=== PATIENT | male | born 1960 | race Caucasian/White ===

== ENCOUNTER 2023-05-14 13:56 | Inpatient (IN) | payer SELFPAY ==
[~2023-05-14] VITALS: Ht 177.8 cm; Wt 99.0 kg
[2023-05-14 15:03] LABS: BILIRUBIN,URINE SMALL (Neg); CLARITY,URINE CLOUDY (Clear); COLOR,URINE YELLOW (Yellow); GLUCOSE, URINE NEGATIVE (Neg); KETONES,URINE TRACE mg/dl (Neg); LEUKOCYTE ESTERASE ,URINE LARGE (Neg); NITRITES, URINE NEGATIVE (Neg); OCCULT BLOOD,URINE SMALL (Neg); PH,URINE 8.5 (4.8-8.0); PROTEIN,URINE 30 mg/dl (Neg)
[2023-05-14 15:04] LABS: BASOPHILS % (AUTO) 0.1 % (0-1); EOSINOPHILS % (AUTO) 0.1 % (0-6); HEMATOCRIT 44.2 % (42.0-52.0); HEMOGLOBIN 14.7 g/dl (14.0-17.9); LYMPHOCYTES # (AUTO) 0.7 X10'3 (1.1-4.8); LYMPHOCYTES % (AUTO) 2.3 % (21-51); MEAN CORPUSCULAR HEMOGLOBIN 29.5 PG (27.0-31.0); MEAN CORPUSCULAR HGB CONC 33.3 g/dL (33.0-36.5); MEAN CORPUSCULAR VOLUME 88.6 FL (78-98); MEAN PLATELET VOLUME 10.5 FL (7.4-10.4); MONOCYTES # (AUTO) 3.1 X10'3 (0-0.9); MONOCYTES % (AUTO) 9.7 % (2-12); NEUTROPHILS # (AUTO) 27.6 X10'3 (1.8-7.7); NEUTROPHILS % (AUTO) 87.8 % (42-75); PLATELET COUNT 236 X10'3 (140-440); RED CELL DISTRIBUTION WIDTH 14.1 % (11.5-14.5)
[2023-05-14 15:07] LABS: WHITE BLOOD COUNT 31.4 X10'3 (4.5-11.0)
[2023-05-14 15:11] LABS: UA COLLECTION TYPE CLN CATCH MIDSTREAM
[2023-05-14 15:16] LABS: SQUAMOUS EPITHELIAL CELL,UR FEW /LPF (FEW)
[2023-05-14 15:16] LABS: ALANINE AMINOTRANSFERASE 79 U/L (12-78); ALBUMIN 2.4 G/DL (3.4-5.0); ALBUMIN/GLOBULIN RATIO 0.5 (1.1-1.5); ALKALINE PHOSPHATASE 381 IU/L (46-116); AMYLASE 43 U/L (25-115); ANION GAP 12 (8-16); ASPARTATE AMINO TRANSFERASE 49 U/L (10-37); BILIRUBIN,TOTAL 3.4 MG/DL (0.1-1.0); BLOOD UREA NITROGEN 31 MG/DL (7-18); BUN/CREATININE RATIO 21.2 (10.0-20.0); CALCIUM 9.2 MG/DL (8.5-10.1); CHLORIDE 98 MMOL/L (99-107); CREATININE 1.46 MG/DL (0.60-1.10); GLUCOSE 177 MG/DL (70-104); LIPASE 40 U/L (16-77); POTASSIUM 3.3 MMOL/L (3.5-5.1); SODIUM 135 MMOL/L (135-145); TOTAL CARBON DIOXIDE 24.6 MMOL/L (24-32); TOTAL PROTEIN 7.4 G/DL (6.4-8.2); eCRCL 53 ML/MIN; eGFR 49 ML/MIN
[2023-05-14 15:17] LABS: BACTERIA,URINE 2+ /HPF (Neg); WBC,URINE 50-100 /HPF (0-4)
[2023-05-14 15:28] LABS: GIANT PLATELET FEW; LARGE PLATELETS FEW; PLATELET ESTIMATE NORMAL; TOTAL CELLS COUNTED 100
[2023-05-14] MEDS: normal saline 1000ML IV soln IV ONE (15:35)
[2023-05-14] MEDS ORDERED: vancomycin inj 1,000 MG in normal saline 250ml IV soln 250 ML IV ONE (15:40)
[2023-05-14] MEDS: morphine 4 MG/ML inj SYRINge IV ONE ×2 (16:00→17:23)
[2023-05-14] MEDS: CefTRIAXone 2gm/D5W 50ml BAG 50 ML IV ONE (16:02)
[2023-05-14] MEDS: azithromycin 250mg tablet PO ONE (16:09)
[2023-05-14] MEDS: vancomycin/NS 1 GM ADD-VANTAGE 250 ML X 1 DOSE IV ONE (16:09)
[2023-05-14] MEDS: acetaminophen 325mg tablet PO ONE (16:18)
[2023-05-14] MEDS ORDERED: potassium Cl 20 mEq SR tablet PO PRN ×2 (16:50)
[2023-05-14] MEDS ORDERED: acetaminophen 325mg tablet PO PRN (16:50)
[2023-05-14] MEDS ORDERED: magnesium hydroxide 30ml (MOM) UD suspension PO PRN (16:50)
[2023-05-14] MEDS ORDERED: potassium Cl 40MEQ/1/2NS 520ml 520 ML IV PRN (16:50)
[2023-05-14] MEDS ORDERED: magnesium Cl slow-release 64mg tablet PO PRN (16:50)
[2023-05-14] MEDS ORDERED: magnesium 4gm in 100ml NS 100 ML IV PRN (16:50)
[2023-05-14] MEDS ORDERED: magnesium 2GM in 50ml NS 50 ML IV PRN (16:50)
[2023-05-14] MEDS: normal saline 1000ML IV soln IVB ONE (17:08)
[2023-05-14] MEDS: potassium Cl 20mEq in NS 1,000 ML IV SCH (17:24)
[2023-05-14] MEDS: VANCOMYCIN 750MG IV in NS 250 ML IV ONE (17:35)
[2023-05-14 18:14] LABS: URINE AMPHETAMINE SCREEN POSITIVE (Neg); URINE BARBITUATE SCREEN NEGATIVE (Neg); URINE BENZODIAZEPINES SCREEN NEGATIVE (Neg); URINE CANNABINOID SCREEN POSITIVE (Neg); URINE COCAINE SCREEN NEGATIVE (Neg); URINE METHADONE SCREEN NEGATIVE (Neg); URINE OPIATE SCREEN NEGATIVE (Neg); URINE PHENCYCLIDINE SCREEN NEGATIVE (Neg)
[2023-05-14] MEDS: HYDROcodone/acetaminophen 10/325mg tab PO PRN (19:12)
[2023-05-14 19:15] VITALS: BP 126/68; PULSE 98; RESP 12; TEMP 97.4; O2SAT 96
[2023-05-14] MEDS: K and/or MAG REPLACEMENT MC SCH (20:00)
[2023-05-14] MEDS: morphine 2 MG/ML inj. syringe IV PRN (20:54)
[2023-05-14 22:00] VITALS: BP 137/77; RESP 17; O2SAT 96
[2023-05-15] VITALS (7 sets, daily range): BP systolic 118–133; BP diastolic 57–73; PULSE 98–110; RESP 13–22; TEMP 97.3–98.1; O2SAT 92–98
[2023-05-15] MEDS: piperacillin/tazo 3.375gm/50ml 50 ML IV SCH (01:41)
[2023-05-15] MEDS: docusate sod 100mg capsule PO SCH (01:41)
[2023-05-15] MEDS: vancomycin/NS 1 GM ADD-VANTAGE 250 ML IV SCH (03:42)
[2023-05-15] MEDS: HYDROcodone/acetaminophen 5mg/325mg tablet PO PRN (06:30)
[2023-05-15] MEDS: enoxaparin 40mg/0.4ml syringe SUBCUT SCH (07:12)
[2023-05-15 08:05] LABS: BASOPHILS % (AUTO) 0.2 % (0-1); EOSINOPHILS % (AUTO) 0 % (0-6); HEMATOCRIT 38.9 % (42.0-52.0); HEMOGLOBIN 12.8 g/dl (14.0-17.9); LYMPHOCYTES # (AUTO) 0.6 X10'3 (1.1-4.8); LYMPHOCYTES % (AUTO) 2.3 % (21-51); MEAN CORPUSCULAR HEMOGLOBIN 29.3 PG (27.0-31.0); MEAN CORPUSCULAR HGB CONC 32.9 g/dL (33.0-36.5); MEAN CORPUSCULAR VOLUME 89.2 FL (78-98); MEAN PLATELET VOLUME 10.3 FL (7.4-10.4); MONOCYTES # (AUTO) 1.2 X10'3 (0-0.9); MONOCYTES % (AUTO) 4.9 % (2-12); NEUTROPHILS # (AUTO) 22.5 X10'3 (1.8-7.7); NEUTROPHILS % (AUTO) 92.6 % (42-75); PLATELET COUNT 199 X10'3 (140-440); RED BLOOD COUNT 4.36 X10'6 (4.70-6.10); RED CELL DISTRIBUTION WIDTH 14.3 % (11.5-14.5); WHITE BLOOD COUNT 24.3 X10'3 (4.5-11.0)
[2023-05-15 09:41] LABS: CHLORIDE 101 MMOL/L (99-107); POTASSIUM 4.4 MMOL/L (3.5-5.1); SODIUM 136 MMOL/L (135-145)
[2023-05-15 09:52] LABS: ALBUMIN 1.7 G/DL (3.4-5.0); ANION GAP 15 (8-16); BLOOD UREA NITROGEN 42 MG/DL (7-18); BUN/CREATININE RATIO 24.9 (10.0-20.0); CALCIUM 7.3 MG/DL (8.5-10.1); CREATININE 1.69 MG/DL (0.60-1.10); GLUCOSE 105 MG/DL (70-104); MAGNESIUM 1.7 MG/DL (1.5-2.4); TOTAL CARBON DIOXIDE 19.6 MMOL/L (24-32); eCRCL 47 ML/MIN; eGFR 41 ML/MIN
[2023-05-15] MEDS: nicotine 14mg patch - 24hr TD SCH (15:35)
[2023-05-15] MEDS: mag hydrox/Alum hydrox/simeth 30ml oral suspension PO PRN (18:42)
[2023-05-15] MEDS ORDERED: OMEP40CA21 PO (23:06)
[2023-05-16] MEDS: ondansetron/PF 4mg/2ml inj IV PRN (02:18)
[2023-05-16 02:20] VITALS: BP 125/60; PULSE 100; RESP 20; TEMP 100.1; O2SAT 93
[2023-05-16] MEDS: VANCOMYCIN LEVEL IV ONE (03:30)
[2023-05-16 04:46] LABS: BASOPHILS # (AUTO) 0.1 X10'3 (0-0.2); BASOPHILS % (AUTO) 0.4 % (0-1); EOSINOPHILS # (AUTO) 0.1 X10'3 (0-0.9); EOSINOPHILS % (AUTO) 0.2 % (0-6); HEMATOCRIT 37.2 % (42.0-52.0); HEMOGLOBIN 12.3 g/dl (14.0-17.9); LYMPHOCYTES # (AUTO) 0.8 X10'3 (1.1-4.8); LYMPHOCYTES % (AUTO) 3.3 % (21-51); MEAN CORPUSCULAR HEMOGLOBIN 29.1 PG (27.0-31.0); MEAN CORPUSCULAR HGB CONC 33.1 g/dL (33.0-36.5); MEAN PLATELET VOLUME 10.5 FL (7.4-10.4); MONOCYTES # (AUTO) 0.8 X10'3 (0-0.9); MONOCYTES % (AUTO) 3.2 % (2-12); NEUTROPHILS # (AUTO) 23.7 X10'3 (1.8-7.7); NEUTROPHILS % (AUTO) 92.9 % (42-75); PLATELET COUNT 247 X10'3 (140-440); RED BLOOD COUNT 4.23 X10'6 (4.70-6.10); RED CELL DISTRIBUTION WIDTH 14.8 % (11.5-14.5)
[2023-05-16 04:54] LABS: WHITE BLOOD COUNT 25.5 X10'3 (4.5-11.0)
[2023-05-16 04:59] LABS: ALANINE AMINOTRANSFERASE 34 U/L (12-78); ALBUMIN 1.5 G/DL (3.4-5.0); ALBUMIN/GLOBULIN RATIO 0.3 (1.1-1.5); ALKALINE PHOSPHATASE 225 IU/L (46-116); ANION GAP 8 (8-16); ASPARTATE AMINO TRANSFERASE 37 U/L (10-37); BILIRUBIN,TOTAL 3.9 MG/DL (0.1-1.0); BLOOD UREA NITROGEN 44 MG/DL (7-18); BUN/CREATININE RATIO 30.1 (10.0-20.0); CALCIUM 7.9 MG/DL (8.5-10.1); CHLORIDE 103 MMOL/L (99-107); CREATININE 1.46 MG/DL (0.60-1.10); GLUCOSE 96 MG/DL (70-104); MAGNESIUM 2.2 MG/DL (1.5-2.4); POTASSIUM 4.2 MMOL/L (3.5-5.1); SODIUM 136 MMOL/L (135-145); TOTAL CARBON DIOXIDE 24.8 MMOL/L (24-32); TOTAL PROTEIN 5.9 G/DL (6.4-8.2); eCRCL 55 ML/MIN; eGFR 49 ML/MIN
[2023-05-16 05:17] LABS: LARGE PLATELETS FEW; PLATELET ESTIMATE NORMAL; TOTAL CELLS COUNTED 100
[2023-05-16 05:20] LABS: VANCOMYCIN,TROUGH 9.7 ug/mL (10.0-20.0)
[2023-05-16] MEDS: nicotine 14mg patch - 24hr TD SCH (08:00)
[2023-05-16] MEDS: pantoprazole 40mg Tablet.DR PO SCH (08:11)
[2023-05-16 15:00] VITALS: BP 133/58; PULSE 79; RESP 17; TEMP 99; O2SAT 93
[2023-05-16] MEDS: VANCOmycin 1250MG/NS 250ml Bag 250 ML IV SCH (16:00)
[2023-05-16 18:00] VITALS: BP 120/62; PULSE 89; RESP 19; TEMP 98; O2SAT 97
[2023-05-16 20:00] VITALS: RESP 16
[2023-05-16 22:00] VITALS: BP 110/62; PULSE 85; RESP 14; TEMP 98; O2SAT 95
[2023-05-17 02:00] VITALS: BP 116/66; PULSE 85; RESP 16; TEMP 97.8; O2SAT 96
[2023-05-17 07:12] VITALS: BP 132/63; PULSE 79; RESP 18; TEMP 98.6; O2SAT 97
[2023-05-17 08:10] VITALS: RESP 14; O2SAT 99
[2023-05-17 08:32] LABS: BASOPHILS # (AUTO) 0.1 X10'3 (0-0.2); BASOPHILS % (AUTO) 0.4 % (0-1); EOSINOPHILS # (AUTO) 0.1 X10'3 (0-0.9); EOSINOPHILS % (AUTO) 0.4 % (0-6); HEMATOCRIT 35.1 % (42.0-52.0); HEMOGLOBIN 11.8 g/dl (14.0-17.9); LYMPHOCYTES # (AUTO) 1.3 X10'3 (1.1-4.8); LYMPHOCYTES % (AUTO) 4.9 % (21-51); MEAN CORPUSCULAR HEMOGLOBIN 29.3 PG (27.0-31.0); MEAN CORPUSCULAR HGB CONC 33.7 g/dL (33.0-36.5); MEAN CORPUSCULAR VOLUME 87.2 FL (78-98); MEAN PLATELET VOLUME 9.7 FL (7.4-10.4); MONOCYTES % (AUTO) 3.8 % (2-12); NEUTROPHILS # (AUTO) 23.5 X10'3 (1.8-7.7); NEUTROPHILS % (AUTO) 90.5 % (42-75); PLATELET COUNT 259 X10'3 (140-440); RED BLOOD COUNT 4.02 X10'6 (4.70-6.10); RED CELL DISTRIBUTION WIDTH 14.5 % (11.5-14.5)
[2023-05-17 08:44] LABS: ALANINE AMINOTRANSFERASE 43 U/L (12-78); ALBUMIN 1.3 G/DL (3.4-5.0); ALKALINE PHOSPHATASE 268 IU/L (46-116); ANION GAP 6 (8-16); ASPARTATE AMINO TRANSFERASE 51 U/L (10-37); BILIRUBIN,TOTAL 4.5 MG/DL (0.1-1.0); BLOOD UREA NITROGEN 38 MG/DL (7-18); BUN/CREATININE RATIO 31.9 (10.0-20.0); CALCIUM 7.7 MG/DL (8.5-10.1); CHLORIDE 103 MMOL/L (99-107); CREATININE 1.19 MG/DL (0.60-1.10); GLUCOSE 95 MG/DL (70-104); MAGNESIUM 2.3 MG/DL (1.5-2.4); POTASSIUM 4.6 MMOL/L (3.5-5.1); SODIUM 133 MMOL/L (135-145); TOTAL CARBON DIOXIDE 24.1 MMOL/L (24-32); eCRCL 67 ML/MIN; eGFR 62 ML/MIN
[2023-05-17 08:47] LABS: ALBUMIN/GLOBULIN RATIO 0.3 (1.1-1.5); TOTAL PROTEIN 5.9 G/DL (6.4-8.2)
[2023-05-17 09:05] LABS: TOTAL CELLS COUNTED 100
[2023-05-17 09:06] LABS: PLATELET ESTIMATE NORMAL
[2023-05-17 10:12] LABS: CHLAMYDIA TRACHOMATIS, NAA Negative (Negative)
[2023-05-17] MEDS: ondansetron/PF 4mg/2ml inj IV PRN (11:54)
[2023-05-17 15:25] VITALS: BP 148/65; PULSE 80; RESP 15; TEMP 98.2; O2SAT 95
[2023-05-17] MEDS ORDERED: proCHLORperazine 10 MG/2 ml inj IV PRN (17:05)
[2023-05-17 18:00] VITALS: BP 144/69; PULSE 85; RESP 20; TEMP 97.7; O2SAT 94
[2023-05-17 22:00] VITALS: BP 125/67; PULSE 86; RESP 18; TEMP 98.2; O2SAT 93
[2023-05-18] VITALS (8 sets, daily range): BP systolic 138–168; BP diastolic 51–76; PULSE 67–94; RESP 15–23; TEMP 97.3–101; O2SAT 93–99
[2023-05-18] MEDS: VANCOMYCIN LEVEL IV ONE (03:30)
[2023-05-18 07:25] LABS: EOSINOPHILS # (AUTO) 0.1 X10'3 (0-0.9); LYMPHOCYTES # (AUTO) 1.4 X10'3 (1.1-4.8)
[2023-05-18 07:28] LABS: BASOPHILS % (AUTO) 0.2 % (0-1); EOSINOPHILS % (AUTO) 0.5 % (0-6); HEMATOCRIT 35.6 % (42.0-52.0); LYMPHOCYTES % (AUTO) 5.1 % (21-51); MEAN CORPUSCULAR HEMOGLOBIN 29.4 PG (27.0-31.0); MEAN CORPUSCULAR HGB CONC 33.7 g/dL (33.0-36.5); MEAN CORPUSCULAR VOLUME 87.1 FL (78-98); MEAN PLATELET VOLUME 9.2 FL (7.4-10.4); MONOCYTES # (AUTO) 1.4 X10'3 (0-0.9); MONOCYTES % (AUTO) 5.2 % (2-12); NEUTROPHILS # (AUTO) 24.6 X10'3 (1.8-7.7); PLATELET COUNT 314 X10'3 (140-440); RED BLOOD COUNT 4.09 X10'6 (4.70-6.10); RED CELL DISTRIBUTION WIDTH 14.1 % (11.5-14.5)
[2023-05-18 07:40] LABS: ALANINE AMINOTRANSFERASE 44 U/L (12-78); ALBUMIN 1.2 G/DL (3.4-5.0); ALBUMIN/GLOBULIN RATIO 0.2 (1.1-1.5); ALKALINE PHOSPHATASE 291 IU/L (46-116); ANION GAP 6 (8-16); ASPARTATE AMINO TRANSFERASE 60 U/L (10-37); BILIRUBIN,TOTAL 3.6 MG/DL (0.1-1.0); BLOOD UREA NITROGEN 27 MG/DL (7-18); BUN/CREATININE RATIO 24.5 (10.0-20.0); CALCIUM 7.5 MG/DL (8.5-10.1); CHLORIDE 104 MMOL/L (99-107); GLUCOSE 94 MG/DL (70-104); POTASSIUM 4.7 MMOL/L (3.5-5.1); SODIUM 133 MMOL/L (135-145); TOTAL CARBON DIOXIDE 23.2 MMOL/L (24-32); TOTAL PROTEIN 6.2 G/DL (6.4-8.2); eCRCL 73 ML/MIN; eGFR 68 ML/MIN
[2023-05-18 07:55] LABS: MAGNESIUM 1.7 MG/DL (1.5-2.4)
[2023-05-18 07:59] LABS: VANCOMYCIN,TROUGH 43.5 ug/mL (10.0-20.0)
[2023-05-18 08:13] LABS: WHITE BLOOD COUNT 27.7 X10'3 (4.5-11.0)
[2023-05-18 08:17] LABS: PLATELET ESTIMATE NORMAL; TOTAL CELLS COUNTED 100; TOXIC VACUOLATION 1+
[2023-05-18 08:18] LABS: POLYCHROMASIA FEW; STOMATOCYTES 1+; TOXIC GRANULATION 2+
[2023-05-18] MEDS: VANCOMYCIN LEVEL IJ ONE (15:30)
[2023-05-18] MEDS ORDERED: iohexol 300mg/ml 100ml inj. ONE (16:23)
[2023-05-18] MEDS: HYDROmorphone 1 mg/ml syringe IV ONE (22:16)
[2023-05-19] VITALS (8 sets, daily range): BP systolic 155–172; BP diastolic 62–72; PULSE 86–96; RESP 13–23; TEMP 97.6–101.1; O2SAT 95–99
[2023-05-19] MEDS ORDERED: HYDROmorphone 1 mg/ml syringe IM ONE (02:35)
[2023-05-19] MEDS: hydrALAZINE 20mg/ml inj. IV ONE (03:01)
[2023-05-19] MEDS: VANCOMYCIN 1,500MG in normal saline IV soln 300 ML IV SCH (05:02)
[2023-05-19] MEDS: HYDROmorphone 1 mg/ml syringe IV ONE (05:28)
[2023-05-19 07:45] LABS: MEAN CORPUSCULAR VOLUME 86.6 FL (78-98)
[2023-05-19 07:48] LABS: HEMATOCRIT 34.9 % (42.0-52.0); HEMOGLOBIN 11.8 g/dl (14.0-17.9); MEAN CORPUSCULAR HEMOGLOBIN 29.2 PG (27.0-31.0); MEAN CORPUSCULAR HGB CONC 33.8 g/dL (33.0-36.5); MEAN PLATELET VOLUME 9.1 FL (7.4-10.4); PLATELET COUNT 320 X10'3 (140-440); RED BLOOD COUNT 4.03 X10'6 (4.70-6.10)
[2023-05-19] MEDS: linezolid 600mg tablet PO SCH (07:49)
[2023-05-19 07:53] LABS: WHITE BLOOD COUNT 32.7 X10'3 (4.5-11.0)
[2023-05-19 07:56] LABS: ALANINE AMINOTRANSFERASE 40 U/L (12-78); ALBUMIN 1.2 G/DL (3.4-5.0); ALBUMIN/GLOBULIN RATIO 0.2 (1.1-1.5); ALKALINE PHOSPHATASE 301 IU/L (46-116); ANION GAP 8 (8-16); ASPARTATE AMINO TRANSFERASE 45 U/L (10-37); BILIRUBIN,TOTAL 2.8 MG/DL (0.1-1.0); BLOOD UREA NITROGEN 22 MG/DL (7-18); BUN/CREATININE RATIO 21.6 (10.0-20.0); CALCIUM 7.6 MG/DL (8.5-10.1); CHLORIDE 104 MMOL/L (99-107); CREATININE 1.02 MG/DL (0.60-1.10); GLUCOSE 105 MG/DL (70-104); POTASSIUM 4.6 MMOL/L (3.5-5.1); SODIUM 135 MMOL/L (135-145); TOTAL CARBON DIOXIDE 23.2 MMOL/L (24-32); TOTAL PROTEIN 6.3 G/DL (6.4-8.2); eCRCL 79 ML/MIN; eGFR 74 ML/MIN
[2023-05-19 08:23] LABS: PLATELET ESTIMATE NORMAL; POLYCHROMASIA FEW; TARGET CELLS FEW; TOTAL CELLS COUNTED 100
[2023-05-19 08:24] LABS: STOMATOCYTES 1+; TOXIC GRANULATION 2+
[2023-05-19] MEDS: LORazepam 2 mg/ml vial IM ONE (10:00)
[2023-05-19] MEDS ORDERED: LORazepam 2 mg/ml vial IM ONE (10:15)
[2023-05-19 11:22] LABS: D-DIMER 3.99 MG/L FEU (0-0.50)
[2023-05-19 11:36] LABS: CREATINE KINASE 22 U/L (39-308)
[2023-05-19] MEDS: LORazepam 2 mg/ml vial IV ONE (12:34)
[2023-05-20 02:00] VITALS: BP 143/73; PULSE 94; RESP 16; TEMP 99.5; O2SAT 98
[2023-05-20 05:23] VITALS: BP 138/75; PULSE 90; RESP 16; TEMP 99; O2SAT 98
[2023-05-20 07:00] VITALS: BP 157/80; PULSE 91; RESP 16; TEMP 99.5; O2SAT 99
[2023-05-20 08:00] VITALS: RESP 18; O2SAT 95
[2023-05-20] MEDS: morphine 2 MG/ML inj. syringe IV PRN (09:59)
[2023-05-20 10:21] LABS: BASOPHILS # (AUTO) 0.1 X10'3 (0-0.2); BASOPHILS % (AUTO) 0.4 % (0-1); EOSINOPHILS # (AUTO) 0.2 X10'3 (0-0.9); EOSINOPHILS % (AUTO) 0.9 % (0-6); HEMATOCRIT 33.5 % (42.0-52.0); HEMOGLOBIN 11.5 g/dl (14.0-17.9); LYMPHOCYTES # (AUTO) 1.8 X10'3 (1.1-4.8); LYMPHOCYTES % (AUTO) 6.3 % (21-51); MEAN CORPUSCULAR HGB CONC 34.3 g/dL (33.0-36.5); MEAN CORPUSCULAR VOLUME 87.6 FL (78-98); MEAN PLATELET VOLUME 8.8 FL (7.4-10.4); MONOCYTES # (AUTO) 1.4 X10'3 (0-0.9); MONOCYTES % (AUTO) 4.9 % (2-12); NEUTROPHILS # (AUTO) 25.3 X10'3 (1.8-7.7); NEUTROPHILS % (AUTO) 87.5 % (42-75); PLATELET COUNT 368 X10'3 (140-440); RED BLOOD COUNT 3.83 X10'6 (4.70-6.10); RED CELL DISTRIBUTION WIDTH 14.2 % (11.5-14.5)
[2023-05-20 10:28] LABS: WHITE BLOOD COUNT 28.9 X10'3 (4.5-11.0)
[2023-05-20 10:50] LABS: TOTAL CELLS COUNTED 100
[2023-05-20 10:52] LABS: PLATELET ESTIMATE NORMAL; STOMATOCYTES 2+; TARGET CELLS FEW
[2023-05-20 11:00] VITALS: BP 159/79; RESP 16; TEMP 99.1; O2SAT 99
[2023-05-20 13:03] LABS: ALANINE AMINOTRANSFERASE 45 U/L (12-78); ALBUMIN 1.3 G/DL (3.4-5.0); ALBUMIN/GLOBULIN RATIO 0.2 (1.1-1.5); ALKALINE PHOSPHATASE 321 IU/L (46-116); ANION GAP 6 (8-16); ASPARTATE AMINO TRANSFERASE 42 U/L (10-37); BLOOD UREA NITROGEN 17 MG/DL (7-18); CALCIUM 7.6 MG/DL (8.5-10.1); CHLORIDE 104 MMOL/L (99-107); CREATININE 1.06 MG/DL (0.60-1.10); GLUCOSE 113 MG/DL (70-104); POTASSIUM 4.6 MMOL/L (3.5-5.1); SODIUM 133 MMOL/L (135-145); TOTAL CARBON DIOXIDE 22.7 MMOL/L (24-32); TOTAL PROTEIN 6.6 G/DL (6.4-8.2); eCRCL 76 ML/MIN; eGFR 71 ML/MIN
[2023-05-20 15:39] VITALS: RESP 20
[2023-05-20] MEDS ORDERED: VANCOMYCIN LEVEL IV ONE (16:30)
[2023-05-21] MEDS ORDERED: VANCOMYCIN LEVEL IV ONE (12:00)
== END 2023-05-20 16:20 | disposition left against medical advice (07) | DRG 871 ==
LOC: ER 13:56 → ED HOLD 16:54 → PCU 3S 19:45
PROVIDERS: ADMIT Internal Medicine; ATTEND Internal Medicine
DX: A41.02 Sepsis due to Methicillin resistant Staphylococcus aureus (principal); N17.0 Acute kidney failure with tubular necrosis; L03.114 Cellulitis of left upper limb; M00.9 Pyogenic arthritis, unspecified; N12 Tubulo-interstitial nephritis, not specified as acute or chronic; M25.512 Pain in left shoulder; F17.210 Nicotine dependence, cigarettes, uncomplicated; G89.29 Other chronic pain; Z20.822 Contact with and (suspected) exposure to COVID-19; R65.20 Severe sepsis without septic shock; Z87.440 Personal history of urinary (tract) infections; Z86.19 Personal history of other infectious and parasitic diseases
CPT/HCPCS: 36415; 70551; 71045; 73030; 73080; 73221; 74176; 80048; 80053; 80202; 80305; 81001; 82150; 82550; 83605; 83690; 83735; 84145; 85007; 85025; 85379; 85651; 86140; 86592; 87040; 87077; 87081; 87088; 87186; 87491; 87502; 87503; 87811; 93306; 93971; 96365; 96368; 96375; 99285; A6258; G0378; J0360; J0696; J1170; J1650; J2060; J2270; J2405; J2543; J3370; J3480; J3490; J7030; J7040; J7050; Q9967